=== PATIENT | female | born 1965 | race Caucasian/White ===

== ENCOUNTER 2018-02-09 01:27 | Emergency (ER) | payer SELFPAY | END 2018-02-09 02:20 | disposition left against medical advice (07) | LOC: E/R 01:27 | DX: Z53.21 Procedure and treatment not carried out due to patient leaving prior to being seen by health care provider (principal) ==

== ENCOUNTER 2018-02-09 14:42 | Emergency (ER) | payer OTHER ==
[2018-02-09] MEDS: HALOPERIDOL 5 MG INJ IV (15:17)
[2018-02-09] MEDS: SOD CHLORIDE 0.9% 1,000 ML IV (15:18)
[2018-02-09 15:23] LABS: ADD MAN DIFF? NO
[2018-02-09 15:27] LABS: BASOPHIL # 0.1 10^3/ul (0.0-0.1); BASOPHILS % 0.5 % (0.0-2.0); EOSINOPHILS % 0.2 % (0.0-7.0); HEMATOCRIT 41.1 % (37.0-47.0); HEMOGLOBIN 14.3 g/dl (12.0-16.0); LYMPHOCYTES % 25.1 % (15.0-51.0); MEAN CORPUSCULAR HEMOGLOBIN 28.9 pg (29.0-33.0); MEAN CORPUSCULAR HGB CONC 34.8 g/dl (32.0-37.0); MEAN CORPUSCULAR VOLUME 83.2 fl (82.0-101.0); MEAN PLATELET VOLUME 9.1 fl (7.4-10.4); MONOCYTE # 0.6 10^3/ul (0.3-0.9); MONOCYTES % 5.1 % (0.0-11.0); NEUTROPHIL # 8.1 10^3/ul (1.6-7.5); NEUTROPHILS % 68.7 % (39.0-77.0); PLATELET COUNT 408 10^3/UL (140-415); RED BLOOD COUNT 4.94 10^6/ul (4.20-5.40); RED CELL DISTRIBUTION WIDTH 12.2 % (11.5-14.5)
[2018-02-09 15:27] LABS: WHITE BLOOD COUNT 11.9 10^3/ul (4.8-10.8)
[2018-02-09 15:47] LABS: ALANINE AMINOTRANSFERASE 31 IU/L (13-69); ALBUMIN 4.9 g/dl (3.3-4.9); ALBUMIN/GLOBULIN RATIO 1.28; ALKALINE PHOSPHATASE 114 IU/L (42-121); ANION GAP 19 (8-16); ASPARTATE AMINO TRANSFERASE 26 IU/L (15-46); BILIRUBIN,INDIRECT 0.4 mg/dl (0-1.1); BILIRUBIN,TOTAL 0.4 mg/dl (0.2-1.3); BLOOD UREA NITROGEN 9 mg/dl (7-20); CALCIUM 9.7 mg/dl (8.4-10.2); CARBON DIOXIDE 25 mmol/L (21-31); CHLORIDE 100 mmol/L (97-110); CREATININE 0.74 mg/dl (0.44-1.00); GLUCOSE 106 mg/dl (70-220); POTASSIUM 3.9 mmol/L (3.5-5.1); SODIUM 140 mmol/L (135-144); TOTAL PROTEIN 8.7 g/dl (6.1-8.1)
[2018-02-09 15:54] LABS: ACETAMINOPHEN < 10.0 ug/ml (10.0-30.0); ETHANOL < 10.0 mg/dl; SALICYLATE < 1.0 mg/dl (5.0-30.0)
[2018-02-09 15:54] LABS: AMMONIA < 9 umol/l (9-30)
[2018-02-09 15:57] LABS: TROPONIN-I < 0.012 ng/ml (0.00-0.12)
[2018-02-09 16:15] LABS: FREE THYROXINE INDEX (Calc) 4.01 ug/ml (0.65-3.89)
[2018-02-09 16:25] LABS: T3 UPTAKE 32.6 % (23.5-40.5); T4 (THYROXINE) 12.3 ug/dl (5.5-11.0)
[2018-02-09 16:26] LABS: PROTIME 13.3 Sec (11.9-14.9)
[2018-02-09 16:27] LABS: PARTIAL THROMBOPLASTIN TIME 29.2 Sec (25.0-35.0)
[2018-02-09] MEDS: LORAZEPAM 2 MG INJ IV (18:06)
[2018-02-09] MEDS: CHLORPROMAZINE 25 MG INJ IM (19:16)
[2018-02-09] MEDS: OLANZAPINE (ODT) 5 MG TAB ODT (22:06)
[2018-02-10] MEDS: LORAZEPAM 2 MG INJ IV (04:34)
[2018-02-10] MEDS: OLANZAPINE 5 MG TAB PO (08:08)
[2018-02-10] MEDS: OLANZAPINE 10 MG VIAL IM (08:32)
[2018-02-10] MEDS: HALOPERIDOL 5 MG INJ IM (10:00)
[2018-02-10] MEDS: LORAZEPAM 2 MG INJ IM (10:00)
[2018-02-10 13:52] LABS: AMPHETAMINE/METHAMPHETAMINE Negative (NEGATIVE); BARBITURATES Negative (NEGATIVE); BENZODIAZEPINES Negative (NEGATIVE); CANNABINOIDS Negative (NEGATIVE); COCAINE Negative (NEGATIVE); OPIATES Negative (NEGATIVE)
[2018-02-11] MEDS ORDERED: DIPHENHYDRAMINE 50 MG INJ (04:35)
[2018-02-11] MEDS ORDERED: HALOPERIDOL 5 MG INJ (04:35)
[2018-02-11] MEDS ORDERED: LORAZEPAM 2 MG INJ (04:36)
[2018-02-11] MEDS: IBUPROFEN 800 MG TAB PO (10:30)
[2018-02-11] MEDS: SOD CHLORIDE 0.9% 1,000 ML IV (13:24)
== END 2018-02-11 15:40 | disposition home or self-care (01) ==
LOC: E/R 14:42
DX: F23 Brief psychotic disorder (principal); F32.3 Major depressive disorder, single episode, severe with psychotic features; R40.2142 Coma scale, eyes open, spontaneous, at arrival to emergency department; R40.2232 Coma scale, best verbal response, inappropriate words, at arrival to emergency department; R40.2352 Coma scale, best motor response, localizes pain, at arrival to emergency department
CPT/HCPCS: 36415; 70450; 71045; 80053; 80306; 80307; 82140; 84436; 84479; 84484; 84703; 85025; 85610; 85730; 93005; 96372; 96374; 96375; 96376; 99285-25